=== PATIENT | male | born 1995 | race Asian ===

== ENCOUNTER 2023-07-29 18:18 | Emergency (ER) | payer BC ==
[2023-07-29] MEDS ORDERED: ASPIRIN 81 MG CHEWABLE TABLET ONE (18:45)
[2023-07-29 18:58] LABS: Absolute Basophils 0.1 K/uL (0-0.5); Absolute Eosinophils 0.2 K/uL (0-0.5); Absolute Lymphocytes (CBC) 2.5 K/uL (0.7-4.9); Absolute Monocytes 0.8 K/uL (0.1-1.3); Absolute Neutrophil 6.3 K/uL (1.8-8.0); Basophils % 0.7 % (0-1.3); Eosinophils % 1.7 % (0-4.4); Hematocrit 46.5 % (39.6-49.0); Hemoglobin 15.2 g/dL (13.6-17.9); Lymphocytes % 25.7 % (15.3-44.8); MCH 27.8 pg (27.0-35.0); MCHC 32.6 g/dL (32.0-36.0); MCV 85.2 fL (80-100); MPV 7.3 fL (7.6-11.3); Monocytes % 8.1 % (3.3-12.3); Neutrophils % 63.8 % (41.7-73.7); Platelets 303 thou/uL (152-406); RBC Red Blood Cell Count 5.46 M/uL (4.33-5.43); Red Cell Distribution Width 13.3 % (12.1-15.2)
--- NOTE | 2023-07-29 19:03 | RAD REPORT ---
EXAM DESCRIPTION: RAD - Chest Single View - 07/29/2023 6:56 pm CLINICAL HISTORY: CHEST PAIN Chest pain. COMPARISON: No comparisons FINDINGS: Portable technique limits examination quality. The lungs are grossly clear. The heart is normal in size. No displaced fractures. IMPRESSION: No acute intrathoracic process suspected.
[2023-07-29 19:16] LABS: Anion Gap 8.8 mEq/L (5.0-15.0); BUN Blood Urea Nitrogen 12 mg/dL (7-18); Bicarbonate 28 mEq/L (21-32); Glomerular Filtration Rate 125 ml/min (=/>90); Glucose Level 96 mg/dL (74-106); Magnesium 2.1 mg/dL (1.6-2.4); NT PRO-BNP 9 pg/mL (<125); Potassium 3.8 mEq/L (3.5-5.1); Sodium Level 138 mEq/L (136-145)
[2023-07-29 19:58] LABS: Troponin High Sensitivity < 3.0 pg/mL (<58.9)
--- NOTE | 2023-07-29 20:21 | RAD REPORT ---
EXAM DESCRIPTION: CT - Chest For Pe Angio - 07/29/2023 8:14 pm CLINICAL HISTORY: Chest pain. CHEST PAIN COMPARISON: No comparisons TECHNIQUE: CT angiogram of the pulmonary arteries was performed with MIP. All CT scans are performed using dose optimization technique as appropriate and may include automated exposure control or mA/KV adjustment according to patient size. FINDINGS: No evidence of pulmonary thromboembolism. No acute aortic finding demonstrated. The lungs are clear. No significant pericardial or pleural fluid. No concerning bony finding. Small hiatal hernia. IMPRESSION: No evidence of pulmonary thromboembolism. No acute lung findings.
--- NOTE | 2023-07-29 20:42 | ER ---
Nurse's Notes [facility] Name: Miki Laguna Age: 28 yrs Sex: Male : 1995 Arrival Date: 07/29/2023 Time: 18:18 Bed 7 Private MD: Diagnosis: Chest pain, unspecified Presentation: 07/28 18:31 Chief complaint: Intermittent sharp left sided chest pain x 2 weeks, became severe hb today. Hx of cystic fibrosis. Coronavirus screen: At this time, the client does not indicate any symptoms associated with coronavirus-19. Ebola Screen: No symptoms or risks identified at this time. Initial Sepsis Screen: Does the patient meet any 2 criteria? No. Patient's initial sepsis screen is negative. Does the patient have a suspected source of infection? No. Patient's initial sepsis screen is negative. Risk Assessment: Do you want to hurt yourself or someone else? Patient reports no desire to harm self or others. Onset of symptoms was July 15, 2023. 18:31 Method Of Arrival: Ambulatory hb 18:31 Acuity: JOSÉ MIGUEL 2 hb Triage Assessment: 18:28 General: Appears in no apparent distress. uncomfortable, Behavior is calm, cooperative. hb Pain: Pain currently is 8 out of 10 on a pain scale. Neuro: Level of Consciousness is awake, alert, obeys commands, Oriented to person, place, time, situation. Cardiovascular: Reports chest pain, Patient's skin is warm and dry. Rhythm is tachy. Respiratory: Respiratory effort is even, unlabored, Respiratory pattern is regular, symmetrical. Historical: - Allergies: 18:33 No Known Allergies; hb - Home Meds: 18:33 None [Active]; hb - PMHx: 18:33 Cystic Fibrosis; hb - PSHx: 18:33 None; hb - Immunization history:: Adult Immunizations up to date. - Infectious Disease History:: Denies. - Social history:: Smoking status: Patient denies any tobacco usage or history of. Screenin:[address] [facility] ED Fall Risk Assessment (Adult) History of falling in the last 3 months, ko1 including since admission No falls in past 3 months (0 pts) Confusion or Disorientation No (0 pts) Intoxicated or Sedated No (0 pts) Impaired Gait No (0 pts) Mobility Assist Device Used No (0 pt) Altered Elimination No (0 pt) Score/Fall Risk Level 0 - 2 = Low Risk Oriented to surroundings, Maintained a safe environment, Educated pt \T\ family on fall prevention, incl call for assistance when getting out of bed, Assessed \T\ reinforced patient's understanding of fall precautions, Provided non-skid footwear, Hourly rounding (assess needs \T\ fall precautionary measures) done, Used ambulatory aids as needed (educated on \T\ assisted with), Used gait belt as appropriate. Abuse screen: Denies threats or abuse. Denies injuries from another. Nutritional screening: No deficits noted. Tuberculosis screening: No symptoms or risk factors identified. Assessment: 18:34 General: Appears in no apparent distress. Behavior is calm, cooperative, appropriate ko1 for age. Pain: Complains of pain in anterior aspect of left upper chest Pain does not radiate. Pain began 2 weeks ago. Neuro: No deficits noted. Cardiovascular: Reports chest pain. Respiratory: No deficits noted. GI: No deficits noted. : No deficits noted. EENT: No deficits noted. Derm: No deficits noted. Musculoskeletal: No deficits noted. 19:29 Reassessment: Patient appears in no apparent distress at this time. Patient and/or pc2 family updated on plan of care and expected duration. Pain level reassessed. Patient is alert, oriented x 3, equal unlabored respirations, skin warm/dry/pink. Family remains at bedside. Patient denies any needs at this time. Call light in reach. Patient denies pain at this time. Respiratory: Airway is patent Respiratory effort is even, unlabored, Respiratory pattern is regular, symmetrical. 20:30 Reassessment: Patient appears in no apparent distress at this time. Patient and/or tm6 family updated on plan of care and expected duration. Pain level reassessed. Patient is alert, oriented x 3, equal unlabored respirations, skin warm/dry/pink. 21:07 Reassessment: Patient appears in no apparent distress at this time. Patient and/or tm6 family updated on plan of care and expected duration. Pain level reassessed. Patient is alert, oriented x 3, equal unlabored respirations, skin warm/dry/pink. Vital Signs: 18:31 BP 134 / 83; Pulse 98; Resp 16; Temp 98.4(O); Pulse Ox 99% on R/A; Weight 77.11 kg; hb Height 5 ft. 7 in. ; Pain 8/10; 19:28 BP 123 / 80; Pulse 74; Resp 18; Pulse Ox 98% on R/A; pc2 20:29 Pulse 69; Pulse Ox 100% ; Pain 0/10; tm6 21:06 BP 120 / 73; Pulse 84; Resp 21; Temp 97.3(TE); Pulse Ox 98% on R/A; Pain 0/10; tm6 18:31 Body Mass Index 26.63 (77.11 kg, 170.18 cm) hb 18:31 Pain Scale: Adult hb 20:29 Pain Scale: Adult tm6 21:06 Pain Scale: Adult tm6 ED Course: 18:21 Patient arrived in ED. mr 18:24 Leesa Abdi FNP-C is [facility]. kb 18:24 Wyatt Carey MD is Attending Physician. kb 18:26 Laurel Macias, PHILIP is Primary Nurse. ko1 18:29 EKG done, by ED staff, reviewed by Leesa PEREIRA. hb 18:32 Triage completed. hb 18:34 No provider procedures requiring assistance completed. Initial lab(s) drawn, by nc, koLisandro sent to lab. Inserted saline lock: 20 gauge in right antecubital area, using aseptic technique. Blood collected. O2 via RA. 18:34 Arm band placed on. hb 18:34 Client placed on continuous cardiac and pulse oximetry monitoring. NIBP monitoring hb applied. still operator helper on. Pulse ox on. NIBP on. 18:34 Patient has correct armband on for positive identification. Bed in low position. Call ko1 light in reach. Side rails up X 1. Provided Education on: call light/labs. Door closed. Noise minimized. Lights dimmed. Warm blanket given. Pillow given. 18:43 Basic Metabolic Panel Sent. ko1 18:43 CBC with Diff Sent. ko1 18:43 D-Dimer Sent. ko1 18:43 Magnesium Sent. ko1 18:43 NT PRO-BNP Sent. ko1 18:43 Troponin HS Sent. ko1 18:58 XRAY Chest (1 view) In Process Unspecified. EDMS 20:15 CT Chest For PE Angio In Process Unspecified. EDMS 21:07 IV discontinued, intact, bleeding controlled, No redness/swelling at site. Pressure tm6 dressing applied. Administered Medications: 18:44 Drug: Aspirin PO Chewable Tablet 324 mg PO once; 81 mg tablets x 4 Route: PO; ko1 Medication: 18:34 VIS not applicable for this client. ko1 Outcome: 20:42 Discharge ordered by MD. mtz 21:07 Discharged to home ambulatory, with family, tm6 21:07 Condition: stable 21:07 Discharge instructions given to patient, family, Instructed on discharge instructions, follow up and referral plans. Demonstrated understanding of instructions, follow-up care, 21:07 Patient left the ED. tm6 Signatures: Dispatcher [employer] EDMS Leesa Abdi, KELLI YOUNG-Mecca Albarado, Reg Reg mr Marissa Osborn, RN RN Rosetta Emery Kathy RN RN ko1 Sourav Perez RN RN tm6 Domi fu, RN RN pc2 Corrections: (The following items were deleted from the chart) 18:34 18:33 PMHx: None; hb hb 18:35 18:33 EKG done, by ED staff, reviewed by Leesa pugh
--- NOTE | 2023-07-29 20:42 | EDPHYS ---
Physician Documentation [facility] Name: Miki Laguna Age: 28 yrs Sex: Male : 1995 Arrival Date: 07/29/2023 Time: 18:18 Bed 7 Private MD: ED Physician Wyatt Carey HPI: 07/28 20:41 This 28 yrs old Male presents to ER via Ambulatory with complaints of Chest Pain. kb 20:41 Pt is a 28 year old male who presents for chest pain that started 2 months ago and has kb gotten worse. Denies n/v, shortness of breath, cough, congestion, fever. Denies alleviating/aggravating factors. . Historical: - Allergies: 18:33 No Known Allergies; hb - Home Meds: 18:33 None [Active]; hb - PMHx: 18:33 Cystic Fibrosis; hb - PSHx: 18:33 None; hb - Immunization history:: Adult Immunizations up to date. - Infectious Disease History:: Denies. - Social history:: Smoking status: Patient denies any tobacco usage or history of. ROS: 20:39 Constitutional: As per HPI kb Exam: 18:37 Constitutional: This is a well developed, well nourished patient who is awake, alert, kb and in no acute distress. Head/Face: Normocephalic, atraumatic. ENT: Moist Mucous membranes Cardiovascular: Regular rate Respiratory: Respirations even and unlabored. No increased work of breathing. Talking in full sentences Abdomen/GI: Soft, non-tender. No distention Skin: Warm, dry with normal turgor. Normal color. MS/ Extremity: Pulses equal, no cyanosis. Neurovascular intact. Full, normal range of motion. Neuro: Awake and alert, GCS 15, oriented to person, place, time, and situation. Moves all extremities. Normal gait. 18:37 ECG was reviewed by the Attending Physician. Vital Signs: 18:31 BP 134 / 83; Pulse 98; Resp 16; Temp 98.4(O); Pulse Ox 99% on R/A; Weight 77.11 kg; hb Height 5 ft. 7 in. ; Pain 8/10; 19:28 BP 123 / 80; Pulse 74; Resp 18; Pulse Ox 98% on R/A; pc2 20:29 Pulse 69; Pulse Ox 100% ; Pain 0/10; tm6 21:06 BP 120 / 73; Pulse 84; Resp 21; Temp 97.3(TE); Pulse Ox 98% on R/A; Pain 0/10; tm6 18:31 Body Mass Index 26.63 (77.11 kg, 170.18 cm) hb 18:31 Pain Scale: Adult hb 20:29 Pain Scale: Adult tm6 21:06 Pain Scale: Adult tm6 MDM: 18:25 Patient medically screened. kb 20:40 Data reviewed: vital signs, nurses notes. kb 20:40 Differential diagnosis: abnormal EKG, acute myocardial infarction, anxiety, coronary kb artery disease gastroesophageal reflux disease (GERD), pulmonary embolus. Counseling: I had a detailed discussion with the patient and/or guardian regarding the historical points, exam findings, and any diagnostic results supporting the discharge/admit diagnosis, lab results, radiology results, the need for outpatient follow up, a family practitioner, to return to the emergency department if symptoms worsen or persist or if there are any questions or concerns that arise at home. 07/28 18:37 Order name: Basic Metabolic Panel; Complete Time: 19:59 kb 07/28 18:37 Order name: CBC with Diff; Complete Time: 19:01 kb 07/28 18:37 Order name: D-Dimer; Complete Time: 19:27 kb 07/28 18:37 Order name: Magnesium; Complete Time: 19:59 kb 07/28 18:37 Order name: NT PRO-BNP; Complete Time: 19:59 kb 07/28 18:37 Order name: Troponin HS; Complete Time: 19:59 kb 07/28 18:37 Order name: XRAY Chest (1 view); Complete Time: 19:04 kb 07/28 19:28 Order name: CT Chest For PE Angio; Complete Time: 20:26 kb 07/28 18:37 Order name: Cardiac monitoring; Complete Time: 18:43 kb 07/28 18:37 Order name: EKG - Nurse/Tech; Complete Time: 18:43 kb 07/28 18:37 Order name: IV Saline Lock; Complete Time: 18:43 kb 07/28 18:37 Order name: Labs collected and sent; Complete Time: 18:43 kb 07/28 18:37 Order name: O2 Per Protocol; Complete Time: 18:43 kb 07/28 18:37 Order name: O2 Sat Monitoring; Complete Time: 18:43 kb EC:37 Rate is 86 beats/min. Rhythm is regular. QRS Orient is Normal. LA interval is normal at kb 150 msec. QRS interval is normal at 96 msec. QT interval is normal at 416 msec. Administered Medications: 18:44 Drug: Aspirin PO Chewable Tablet 324 mg PO once; 81 mg tablets x 4 Route: PO; ko1 Disposition Summary: 07/29/23 20:42 Discharge Ordered Notes: Location: Home kb Condition: Stable kb Diagnosis - Chest pain, unspecified kb Followup: kb - With: Emergency Department - When: As needed - Reason: Worsening of condition Followup: kb - With: Private Physician - When: 2 - 3 days - Reason: Recheck today's complaints, Continuance of care, Re-evaluation by your physician Discharge Instructions: - Discharge Summary Sheet kb - Nonspecific Chest Pain, Adult kb Forms: - Medication Reconciliation Form kb - Antibiotic Education kb - Prescription Opioid Use kb - Patient Portal Instructions kb - Leadership Thank You Letter kb Addendum: 07/31/2023 14:15 I was immediately available for consultation during this patient's visit. I did not e c2 personally see the patient or discuss the patient with the PITO. . Signatures: Dispatcher [employer] Leesa Siegel, PROSTHETIST-C PROSTHETIST-Marissa Meng, PHILIP RN hb Laurel Macias RN RN ko1 Wyatt Carey MD MD ec2 Corrections: (The following items were deleted from the chart) 07/28 18:34 18:33 PMHx: None; hb hb 18:38 18:37 BASIC METABOLIC PANEL+C.LAB.BRZ ordered. EDMS EDMS 18:38 18:37 CBC+H.LAB.BRZ ordered. EDMS EDMS 18:38 18:37 D-DIMER+COAG.LAB.BRZ ordered. EDMS EDMS 18:38 18:37 MAGNESIUM+C.LAB.BRZ ordered. EDMS EDMS 18:38 18:37 PROBNP+C.LAB.BRZ ordered. EDMS EDMS 18:38 18:37 Troponin High Sensitivity+C.LAB.BRZ ordered. EDMS EDMS
[2023-07-29 21:53] VITALS: BP 120/73; TEMP 97.3; O2SAT 98
--- NOTE | 2023-07-30 14:53 | EKG ---
Test Date: 2023-07-29 Test Time: 18:29:16 Upholstery Restorer: MARY MEASUREMENT RESULTS: Intervals: Rate: 86 MT: 150 QRSD: 96 QT: 348 QTc: 416 [place]: P: 57 MT: 150 QRS: 61 T: 51 INTERPRETIVE STATEMENTS: Normal sinus rhythm Normal ECG No previous ECG available for comparison Electronically Signed On 07-30-23 14:50:56 CDT by Hal Daniel
== END 2023-07-29 21:07 | disposition home or self-care (01) ==
LOC: ER 18:18
DX: R07.9 Chest pain, unspecified (principal)
CPT/HCPCS: 93005; 85025; 80048; 36415; 83735; 85379; 84484; 83880; 71275; 71045; 99285; Q9967